=== PATIENT | female | born 1945 | race Caucasian/White ===

== ENCOUNTER 2019-06-24 00:44 | Observation (INO) | payer MEDICARE, OTHER, SELFPAY ==
[2019-06-24] VITALS (13 sets, daily range): BP systolic 120–165; BP diastolic 59–81; PULSE 68–77; RESP 16–18; TEMP 36.3–37.2; O2SAT 94–100; BMI 31.6
--- NOTE | 2019-06-24 00:49 | ED.GENADULT ---
HPI - General Adult General Chief complaint: Urogenital-Female Stated complaint: sent by ems for possible UTI Time Seen by Provider: 06/24/19 00:47 Source: patient Mode of arrival: Family Vehicle Limitations: no limitations History of Present Illness HPI narrative: 73-year-old female with a history of CVAs without any known residual deficits here for evaluation of weakness and a potential UTI. Patient states that over the past couple days she has noticed that it has become more difficult for her to get around her house. States at baseline she uses a walker at all times when she is outside of the house but while she is in the how she uses furniture to get around. She has noticed that it become more difficult to do this even with holding on to the furniture. EMS came out to her house within the past 48 hours. She declined transport. She does want evaluated because of the weakness. She stated that her was concerned that she had another stroke. Today EMS was again called out to the house secondary to weakness. She was evaluated by a nurse practitioner. Had a urinalysis done with concern for a urinary tract infection that was also concerned that her blood sugar was elevated. She arrived to the emergency department by private vehicle for evaluation of these conditions. Related Data Home Medications Medication Instructions Recorded Confirmed oxybutynin chloride [Ditropan XL] 10 mg PO QDAY #0 08/06/17 insulin aspart U-100 [Novolog u SQ SLIDE #0 08/08/17 Flexpen U-100 Insulin] insulin glargine [Lantus U-100 10 u SQ [facility] #0 08/08/17 Insulin] DEXTRAN 70/HYPROMELLOSE/PF (TEARS 1 drp OPHTH Q4HP PRN #0 08/31/17 NATURALE FREE DROPS) Lactobacillus acidophilus 50,000 units PO PRN PRN #0 08/31/17 [DOTERRA SUPPLEMENTS] 2 tab PO BID #0 08/31/17 [LEG CRAPMS OTC] TID #0 08/31/17 [RESTLESS LEG OTC] 3 tab PO Q4HP PRN #0 08/31/17 alum-mag hydroxide-simeth [Maglox] 30 ml PO Q4HP PRN #0 08/31/17 bisacodyl 10 mg PA PRN PRN #0 08/31/17 bisacodyl [Fleet Laxative] 5 mg PO PRN PRN #0 08/31/17 bisacodyl [Fleet Laxative] 10 mg PO PRN PRN #0 08/31/17 ferrous sulfate [Iron (ferrous 325 mg PO BID #0 08/31/17 sulfate)] gabapentin [Neurontin] 600 mg PO TID #0 08/31/17 insulin aspart U-100 [Novolog 5 unit SQ TIDAC #0 08/31/17 Flexpen U-100 Insulin] magnesium hydroxide [Milk Of 30 ml PO PRN PRN #0 08/31/17 Magnesia Concentrated] melatonin 6 mg PO HS #0 08/31/17 metoprolol tartrate 50 mg PO BID #0 08/31/17 omeprazole 40 mg QDAY #0 08/31/17 ondansetron 4 mg SUBLINGUAL Q4HP PRN #0 08/31/17 ondansetron HCl 4 mg PO Q2HP PRN #0 08/31/17 sodium phosphates [Fleet Enema] 1 ea PA PRN PRN #0 08/31/17 tramadol 50 mg PO Q4HP PRN #0 08/31/17 Previous Rx's Medication Instructions Recorded acetaminophen 650 mg PO Q4HPP PRN #90 tab 08/10/17 atorvastatin 40 mg PO HS #30 tab 08/13/17 metformin [Fortamet] 1,000 mg PO BID #60 tab 08/14/17 rivaroxaban [Xarelto] 20 mg PO QDAY #30 tab 08/14/17 tramadol 50 mg PO Q8HP PRN #30 tab 09/02/17 amoxicillin-pot clavulanate 875 mg PO BID 10 Days #0 tab 11/09/17 [Augmentin] Allergies Allergy/AdvReac Type Severity Reaction Status Date / Time Muscle Relaxers Allergy Unknown Uncoded 06/24/19 00:54 No Known Allergies Allergy Uncoded 01/10/18 11:53 Review of Systems Constitutional Constitutional: Reports fatigue, Denies fever(s) and Reports weakness Cardiovascular Cardiovascular: Denies chest pain and Denies dyspnea Respiratory Respiratory: Denies dyspnea Gastrointestinal Gastrointestinal: Denies abdominal pain, Denies change in bowel habits, Reports nausea and Denies vomiting Genitourinary Genitourinary: Reports dysuria, Denies urinary incontinence, Reports urinary hesitancy, Reports urinary urgency and Denies vaginal discharge Musculoskeletal Musculoskeletal: Denies myalgias, Denies arthralgias and Reports muscle weakness Integumentary/Breasts Skin/Breast: Denies lesions and Denies rash Neurologic Neurologic: Denies behavioral changes and Reports weakness Psychiatric Psychiatric: Denies behavioral changes Endocrine Endocrine: Reports fatigue Hematologic/Lymphatic Comments: [facility] Medical History (Updated 06/24/19 @ 03:22 by Felix Mariano DO) Anemia (Acute) Diabetes (Acute) Gastroesophageal reflux disease (Acute) Neuropathy (Acute) Stroke (Inactive) Social History marital status: lives independently: Yes Social History marital status: lives independently: Yes Exam Initial Vital Signs Initial Vital Signs: Vital Signs Temperature 98.9 F 06/24/19 00:49 Pulse Rate 68 06/24/19 00:49 Respiratory Rate 16 06/24/19 00:49 Blood Pressure 165/62 H 06/24/19 00:49 Pulse Oximetry 96 06/24/19 00:49 Const General: cooperative, comfortable and well developed Orientation: alert, awake, oriented x3, oriented to person and oriented to place HENPR Head: normal to inspection and normocephalic Resp Effort & Inspection: normal respiratory effort Auscultation: clear to auscultation bilaterally Cardio Rate: regular rate Rhythm: regular rhythm GI Inspection: non-distended Palpation: soft, No firm and No tender Rectal Exam: heme negative stool Back/Spine/Pelvis Back: No CVA tenderness Skin Lesions: no lesions Rashes: no rashes Neuro General: alert, awake and oriented x3 Cranial Nerves: CN's II-XI intact bilaterally Cognition: normal cognition Speech: speech normal Gait: other (Patient able to stand and transfer to commode requiring assistance) Sensory Exam: no sensory deficits noted Coordination: [id number] test normal Other: 5/5 bilateral upper extremities. 4/5 right lower extremity, 3/5 left lower extremity Extrem General: normal to inspection, capillary refill normal and No edema Psych Appearance: grossly normal and well kempt Scores GCS [place] coma scale eye opening: Spontaneous [place] coma scale verbal response: Orientated [place] coma scale motor response: Obey commands [place] coma scale total score: 15 Course Orders Ordered: ED Orders 06/24/19 00:53 EKG-12 Lead Stat 06/24/19 01:00 Basic Metabolic Panel Stat Complete Blood Count AUTO DIFF Stat Lactate (Lactic Acid) Stat Partial Thromboplastin Time Stat Procalcitonin Stat Prothrombin Time INR Stat Troponin I Stat 06/24/19 01:14 CT head/brain wo con Stat 06/24/19 02:20 Urinalysis and Microscopic Stat Urine Culture Stat Sodium Chloride (Normal Saline 0.9%) 1,000 mls @ 125 mls/hr IV CONT TIERNEY Last Admin: 06/24/19 01:50 Dose: 125 mls/hr Documented by: ALBINO Ceftriaxone Sodium/Dextrose (Rocephin) 1 gm in 50 mls @ 100 mls/hr IV NOW ONE Stop: 06/24/19 03:27 Last Admin: 06/24/19 03:16 Dose: 100 mls/hr Documented by: YU Discontinued Medications Tramadol HCl (Ultram) 100 mg PO NOW ONE Stop: 06/24/19 02:56 Last Admin: 06/24/19 03:16 Dose: 100 mg Documented by: YU Vital Signs Vital signs: Vital Signs - 8 hr 06/24/19 00:49 06/24/19 01:55 Temperature 98.9 F Pulse Rate 68 71 Respiratory Rate 16 18 Blood Pressure 165/62 H Blood Pressure [Left Arm] 143/59 H Pulse Oximetry 96 100 Medical Decision Making Lab Data Lab results reviewed: Yes I reviewed the patient's lab results. Result diagrams: 06/24/19 01:00 06/24/19 01:00 Labs: Lab Results 06/24/19 06/24/19 06/24/19 Range/Units 01:00 01:00 01:00 WBC 10.4 (4.5-11.0) X10^3/uL RBC 4.68 (4.0-5.2) X10^6/uL Hgb 7.8 L (12.0-16.0) g/dL Hct 26.6 L (36-46) % MCV 56.8 L (80-100) fL MCH 16.7 L (26-34) PG MCHC 29.4 L (30-36) % RDW 19.1 H (11.6-14.8) % Plt Count 483 H (150-400) X10^3/uL Neut % (Auto) 76.2 H (50-75) % Lymph % (Auto) 18.5 L (25-40) % [place] % (Auto) 4.4 (3-14) % Eos % (Auto) 0.5 L (2-4) % Baso % (Auto) 0.4 (0-2) % Neut # (Auto) 7900 H (5265-3324) /uL Lymph # (Auto) 1900 (4753-4853) /uL [place] # (Auto) 500 (0-900) /uL Eos # (Auto) 0 (0-450) /uL Baso # (Auto) 0 (0-100) /uL RBC Morphology See below Hypochromasia 2+ H Poikilocytosis 1+ H Anisocytosis 2+ H Microcytosis 2+ H PT 11.8 (10.1-12.7) SECONDS INR 1.0 (0.9-1.3) APTT 29 (26.4-36.2) SECONDS Sodium 129 L (137-145) mmol/L Potassium 4.2 (3.4-5.1) mmol/L Chloride 89 L (98-107) mmol/L Carbon Dioxide 26 (22-32) mmol/L BUN 14 (7-17) mg/dL Creatinine 0.70 (0.52-1.04) mg/dL Estimated GFR > 60.0 (>60) mL/min BUN/Creatinine Ratio 20.0 (6-22) Glucose 157 H (80-110) mg/dL Lactate (0.7-2.1) mmol/L Calcium 9.7 (8.4-10.2) mg/dL Troponin I < 0.012 (0.01-0.034) ng/mL Procalcitonin (<0.5) ng/mL Urine Color Urine Appearance Urine pH (4.5-8.0) Ur Specific [place] (1.000-1.035) Urine Protein (Negative) Urine Glucose (UA) (Negative) g/dL Urine Ketones (NEGATIVE) Urine Occult Blood (Negative) Urine Nitrate (Negative) Urine Bilirubin (NEGATIVE) Urine Urobilinogen (0.2) E.U./dL Ur Leukocyte Esterase (NEGATIVE) Urine RBC (0-5/HPF) Urine WBC (0-5/HPF) Ur Squamous Epith Cells (0-5/HPF) Urine Bacteria (None) Ur Culture Indicated? 06/24/19 06/24/19 06/24/19 Range/Units 01:00 01:00 02:20 WBC (4.5-11.0) X10^3/uL RBC (4.0-5.2) X10^6/uL Hgb (12.0-16.0) g/dL Hct (36-46) % MCV (80-100) fL MCH (26-34) PG MCHC (30-36) % RDW (11.6-14.8) % Plt Count (150-400) X10^3/uL Neut % (Auto) (50-75) % Lymph % (Auto) (25-40) % [place] % (Auto) (3-14) % Eos % (Auto) (2-4) % Baso % (Auto) (0-2) % Neut # (Auto) (5628-7531) /uL Lymph # (Auto) (0838-9971) /uL [place] # (Auto) (0-900) /uL Eos # (Auto) (0-450) /uL Baso # (Auto) (0-100) /uL RBC Morphology Hypochromasia Poikilocytosis Anisocytosis Microcytosis PT (10.1-12.7) SECONDS INR (0.9-1.3) APTT (26.4-36.2) SECONDS Sodium (137-145) mmol/L Potassium (3.4-5.1) mmol/L Chloride (98-107) mmol/L Carbon Dioxide (22-32) mmol/L BUN (7-17) mg/dL Creatinine (0.52-1.04) mg/dL Estimated GFR (>60) mL/min BUN/Creatinine Ratio (6-22) Glucose (80-110) mg/dL Lactate 2.1 (0.7-2.1) mmol/L Calcium (8.4-10.2) mg/dL Troponin I (0.01-0.034) ng/mL Procalcitonin < 0.05 (<0.5) ng/mL Urine Color Yellow Urine Appearance Cloudy Urine pH 6.0 (4.5-8.0) Ur Specific [place] 1.010 (1.000-1.035) Urine Protein 2+ H (Negative) Urine Glucose (UA) Negative (Negative) g/dL Urine Ketones Trace H (NEGATIVE) Urine Occult Blood Trace-lysed (Negative) Urine Nitrate Positive (Negative) Urine Bilirubin Negative (NEGATIVE) Urine Urobilinogen 0.2 (0.2) E.U./dL Ur Leukocyte Esterase 2+ H (NEGATIVE) Urine RBC None seen (0-5/HPF) Urine WBC 30-100/hpf H (0-5/HPF) Ur Squamous Epith Cells 0-1 /hpf (0-5/HPF) Urine Bacteria Many (>30) H (None) Ur Culture Indicated? Specimen cultured Imaging Data CT scan - head: Radiologist's impression: Preliminary read Mild nonspecific periventricular deep white matter disease. Old ischemic event left frontal lobe ECG Data Attestation: I personally reviewed and interpreted this ECG as follows: Prior ECG tracings: not available for review Interpretation: Atrial fibrillation Ventricular rate is 70 Normal QRS Normal QTC Normal axis Nonspecific ST T wave changes MDM Narrative Medical decision making narrative: Patient is alert and oriented however does have some problems recalling items. Unsure if this is new however patient states that this has been happening since her stroke. Her head CT shows no signs of acute pathology. She has a urinary tract infection based on the urinalysis and her symptoms. She was given Rocephin in the emergency department for this. Has a normal lactate and normal procalcitonin a normal white blood cell count. She is anemic today. She is Hemoccult negative. Her last hemoglobin and hematocrit was from over 1 year ago and this was unremarkable. Patient does have iron on her medicine list however I am unsure if she takes the iron. Patient states she is unsure she takes iron. This anemia is also complicated by her use of Xarelto. She is on Xarelto given her atrial fibrillation and her history of strokes. I do not feel that her symptoms today are related to a new CVA. She is able to lift her legs up off the bed with left being weaker than the right. Patient states this is not new. Patient is able to stand somewhat at bedside unassisted however required much assistance with transferring to the bedside commode in order to provide a urine sample. She was unable to take any steps in the room secondary to weakness. Patient agrees that this is not her baseline. She states that it is worse today than what it has been over the past several days. This could be secondary to her anemia or urinary tract infection or both. I feel the patient is unsafe to go home given her weakness and bili need to get around. I did discuss the case with TIO Camilo the night hospitalist. Will admit under observation. Discussed admission with the patient who expressed understanding and agreement. Discharge Plan Departure Patient Disposition: Admitted as Observation Clinical Impression: Weakness Anemia Qualifiers: Anemia type: unspecified type Qualified Code(s): D64.9 - Anemia, unspecified Urinary tract infection Qualifiers: Urinary tract infection type: acute cystitis Hematuria presence: without hematuria Qualified Code(s): N30.00 - Acute cystitis without hematuria Admit Date/Time: 06/24/19 03:18 Admit Provider: Luis E Camilo
--- NOTE | 2019-06-24 00:58 | PC.NURSE ---
pt sent from [facility], arrived with friend. [facility] states possible UTI. Pt reports being treated for uti. Pt addidtionally reports having difficulty moving legs. Pt was a heavy 1pa transfer from car to chair to stretcher. Pt unable to specifacally state what is wrong with her legs. Pt denies chest pain, nausea, vomiting, fever, chills.
--- NOTE | 2019-06-24 01:05 | PC.NURSE ---
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
--- NOTE | 2019-06-24 01:14 | DI.CT.S_ITS ---
PROCEDURE: CT HEAD/BRAIN WO CON INDICATIONS: Lower extremity weakness prior history of CVA TECHNIQUE: Noncontrast 4.5 mm thick angled axial sections acquired from the foramen magnum to the vertex, with coronal and sagittal reformats. For radiation dose reduction, the following was used: automated exposure control, adjustment of mA and/or kV according to patient size. COMPARISON: [facility], CT, HEAD WITHOUT CONTRAST, 08/31/2017, 10:27. FINDINGS: Image quality: Excellent. CSF spaces: Basal cisterns are patent. No extra-axial fluid collections. The ventricles are symmetric in size and shape. Brain: No intracranial bleeds or masses. There is cerebral volume loss for age, with resultant ventricular and sulcal prominence. There are periventricular and deep white matter chronic small vessel ischemic changes. Chronic left frontal infarct has occurred in the interval since the prior examination. Chronic mee lacunar infarct. There is intracranial internal carotid artery and vertebral artery atherosclerosis. Skull and face: Calvarium and visualized facial bones appear intact, without suspicious lesions. Sinuses: Visualized sinuses and mastoids are clear. IMPRESSION: No acute intracranial disease process. Dictated by: Charo Meyer MD, PhD on 06/24/2019 at 7:18 Approved by: Charo Meyer MD, PhD on 06/24/2019 at 7:20
[2019-06-24 01:17] LABS: Add Manual Diff / Slide Review NO; Basophils Absolute Auto 0 /uL (0-100); Basophils Percent Auto 0.4 % (0-2); Eosinophils Absolute Auto 0 /uL (0-450); Eosinophils Percent Auto 0.5 % (2-4); Hematocrit 26.6 % (36-46); Hemoglobin 7.8 g/dL (12.0-16.0); Lymphocytes Absolute Auto 1900 /uL (1100-4500); Lymphocytes Percent Auto 18.5 % (25-40); Mean Corpuscular HGB Conc 29.4 % (30-36); Mean Corpuscular Hemoglobin 16.7 PG (26-34); Mean Corpuscular Volume 56.8 fL (80-100); Monocytes Absolute Auto 500 /uL (0-900); Monocytes Percent Auto 4.4 % (3-14); Neutrophils Absolute Auto 7900 /uL (1500-7000); Neutrophils Percent Auto 76.2 % (50-75); Platelet Count 483 X10^3/uL (150-400); Red Blood Cell Count 4.68 X10^6/uL (4.0-5.2); Red Cell Distribution Width 19.1 % (11.6-14.8); White Blood Cell Count 10.4 X10^3/uL (4.5-11.0)
[2019-06-24 01:22] LABS: Prothrombin Time 11.8 SECONDS (10.1-12.7)
[2019-06-24 01:24] LABS: PTT Partial Thromboplastin Tim 29 SECONDS (26.4-36.2)
[2019-06-24 01:25] LABS: Lactate (Lactic Acid) 2.1 mmol/L (0.7-2.1)
[2019-06-24 01:28] LABS: Blood Urea Nitrogen 14 mg/dL (7-17); Calcium 9.7 mg/dL (8.4-10.2); Carbon Dioxide 26 mmol/L (22-32); Chloride 89 mmol/L (98-107); Estimated Glomerular Filt Rate > 60.0 mL/min (>60); Glucose 157 mg/dL (80-110); HEMOLYSIS < 15 (0-50); Potassium 4.2 mmol/L (3.4-5.1); Sodium 129 mmol/L (137-145)
[2019-06-24 01:36] LABS: Anisocytosis 2+; Microcytosis 2+
[2019-06-24 01:38] LABS: Poikilocytosis 1+
[2019-06-24 01:40] LABS: Troponin I < 0.012 ng/mL (0.01-0.034)
[2019-06-24 01:42] LABS: Hypochromasia 2+
[2019-06-24 01:44] LABS: Procalcitonin < 0.05 ng/mL (<0.5)
[2019-06-24] MEDS: SODIUM CHLORIDE 0.9% 1,000 ML 125 ML IV (01:50)
[2019-06-24 02:29] LABS: RBC Urine None Seen (0-5/HPF)
[2019-06-24 02:31] LABS: Appearance Urine UA CLOUDY; Bilirubin Urine UA NEGATIVE (NEGATIVE); Color Urine UA YELLOW; Glucose Urine UA NEGATIVE (Negative); Ketones Urine UA TRACE (NEGATIVE); Leukocyte Esterase Urine UA 2+ (NEGATIVE); Nitrite Urine UA POSITIVE (Negative); Occult Blood Urine UA TRACE-LYSED (Negative); Protein Urine UA 2+ (Negative); Urobilinogen Urine UA 0.2 E.U./dL (0.2)
[2019-06-24 02:39] LABS: Bacteria Urine Many (>30); Culture Indicated Urine Specimen Cultured; Squamous Epithelial Cell Urine 0-1 /HPF (0-5/HPF); WBC Urine 30-100/HPF (0-5/HPF)
[2019-06-24] MEDS: CEFTRIAXONE 1 GM/50 ML FROZ.PIGGY IV (03:16)
[2019-06-24] MEDS: TRAMADOL 50 MG TABLET 100 MG PO (03:16)
--- NOTE | 2019-06-24 03:23 | PC.NURSE ---
Pt tolerating water.
[2019-06-24] MEDS: ONDANSETRON 4 MG/2 ML INJ IV ×2 (03:28→09:29)
--- NOTE | 2019-06-24 03:46 | P.HP_ITS ---
History of Present Illness History of Present Illness Date Patient Seen: 06/24/19 Time Patient Seen: 03:45 Chief complaint: sent by ems for possible UTI Narrative: Ms. Rachana Hunter is a 73-year-old female patient with history significant for atrial fibrillation anticoagulated on Xarelto, hypertension, hyperlipidemia, insulin-dependent type 2 diabetes, history of 2 prior strokes, 1 in each hemisphere,, uterine cancer, neuropathy, fibromyalgia and osteoarthritis presents to the ER following being seen on [facility] and sent for evaluation related to increasing weakness, hyperglycemia and possible urinary tract infection. The patient has been feeling for poorly for the last week and EMS has been to the house related to her increasing weakness and she declined transport. Per medics were again called related to worsening weakness and her hips meds concern for her possibly having another stroke. The patient has been complaining of frequency and urgency of urination as well as nausea and vomiting. She describes her emesis has clear progressing to dry heaves. The patient denies complaints of fevers or chills or dizziness but does acknowledge longstanding balance issues since her strokes. She reports no difficulty chewing or swallowing. She does complain of chronic back pain with radiation into the right leg. She denies chest pain or palpitations. She denies shortness of breath but states she sleeps sitting up in a chair for comfort of her back but also to help her breathe. She denies abdominal pain has nausea vomiting as above. She reports frequent constipation. The patient is ambulatory at home using furniture and martel for support. When she goes outside her into the committed uses walker. She is otherwise independent in her ADLs. Upon arrival in the ER the patient had a temperature of 98.9?, heart rate of 68, blood pressure 165/62 and respirations 16 with oxygen saturation 96% on room air. While in the ER the patient underwent a CT scan which defied no acute intracranial pathology and had lab work revealing a white count of 10.4 anemia with a hemoglobin of 7.8 hematocrit 26.6 with platelets of 483. His notable that she has a MCV of 56, MCH of 16.7 and RDW at 19.1. All her coagulation studies are within normal parameters. She is hyponatremic with a sodium 129 with potassium of 4.2 her BUN is 14 and creatinine is 0.7 has a nonfasting glucose of 157. Procalcitonin is less than 0.05, troponin is less than 0.012 and she has lactic acid of 2.1. Urinalysis obtained which finds 2+ protein with trace ketones, trace blood with lysis, positive leukocyte esterase, WBCs and bacteria. A digital rectal exam is completed by the ER physician obtaining good stool sample which was Hemoccult negative. The patient is admitted to the hospital Patient History Medical History Anemia (Acute) Atrial fibrillation by electrocardiogram (Acute) Diabetes (Acute) Fibromyalgia (Acute) Gastroesophageal reflux disease (Acute) History of hysterectomy (Acute) Neuropathy (Acute) Osteoarthritis (Acute) Stroke (Inactive) Uterine cancer (Acute) Surgical History History of right-sided carotid endarterectomy (Acute) Social History marital status: lives independently: Yes Family & Social History Social History: lives independently Yes Safety & Behavioral: Feels Safe in Current Yes Environment Been Physically Hurt or No Threatened By a Person Comment: The patient lives in single family home she states there has a chair lift for her to get up stairs. She lives there with her to whom she has been for 17 years. She endorses a history of her father being an alcoholic but left the family when she was an infant and nose no further about his medical history. Her mother has and had history of diabetes, uterine cancer and osteoarthritis. She has 6 siblings 1 brother who had myocardial infarction 1 sister who had cancer another sister who had cancer and kidney failure. Smoking: Patient has never used tobacco products Alcohol: The patient denies consuming alcohol Substance use: The patient denies use of recreational pharmaceuticals herbal or cannabis products. Advanced directives: The patient does not have formal advanced directive but indicates that she wishes to be FULL CODE. She designates her daughter Jessica Kimball or her Joel to be surrogate decision makers. Meds Home Medications and Allergies Home Medications Medication Instructions Recorded Confirmed Type oxybutynin chloride [Ditropan XL] 10 mg PO QDAY #0 08/06/17 History insulin aspart U-100 [Novolog u SQ SLIDE #0 08/08/17 History Flexpen U-100 Insulin] insulin glargine [Lantus U-100 10 [place] [facility] [place]0 08/08/17 History Insulin] acetaminophen 650 mg PO Q4HPP PRN #90 tab 08/10/17 Rx atorvastatin 40 mg PO HS #30 tab 08/13/17 Rx metformin [Fortamet] 1,000 mg PO BID #60 tab 08/14/17 Rx rivaroxaban [Xarelto] 20 mg PO QDAY #30 tab 08/14/17 Rx DEXTRAN 70/HYPROMELLOSE/PF (TEARS 1 drp OPHTH Q4HP PRN #0 08/31/17 History NATURALE FREE DROPS) Lactobacillus acidophilus 50,000 units PO PRN PRN #0 08/31/17 History [DOTERRA SUPPLEMENTS] 2 tab PO BID #0 08/31/17 History [LEG CRAPMS OTC] TID #0 08/31/17 History [RESTLESS LEG OTC] 3 tab PO Q4HP PRN #0 08/31/17 History alum-mag hydroxide-simeth [Maglox] 30 ml PO Q4HP PRN #0 08/31/17 History bisacodyl 10 mg SD PRN PRN #0 08/31/17 History bisacodyl [Fleet Laxative] 5 mg PO PRN PRN #0 08/31/17 History bisacodyl [Fleet Laxative] 10 mg PO PRN PRN #0 08/31/17 History ferrous sulfate [Iron (ferrous 325 mg PO BID #0 08/31/17 History sulfate)] gabapentin [Neurontin] 600 mg PO TID #0 08/31/17 History insulin aspart U-100 [Novolog 5 unit SQ TIDAC #0 08/31/17 History Flexpen U-100 Insulin] magnesium hydroxide [Milk Of 30 ml PO PRN PRN #0 08/31/17 History Magnesia Concentrated] melatonin 6 mg PO HS #0 08/31/17 History metoprolol tartrate 50 mg PO BID #0 08/31/17 History omeprazole 40 mg QDAY #0 08/31/17 History ondansetron 4 mg SUBLINGUAL Q4HP PRN #0 08/31/17 History ondansetron HCl 4 mg PO Q2HP PRN #0 08/31/17 History sodium phosphates [Fleet Enema] 1 ea SD PRN PRN #0 08/31/17 History tramadol 50 mg PO Q4HP PRN #0 08/31/17 History tramadol 50 mg PO Q8HP PRN #30 tab 09/02/17 Rx amoxicillin-pot clavulanate 875 mg PO BID 10 Days #0 tab 11/09/17 Rx [Augmentin] Allergies Allergy/AdvReac Type Severity Reaction Status Date / Time Muscle Relaxers Allergy Unknown Uncoded 06/24/19 00:54 No Known Allergies Allergy Uncoded 01/10/18 11:53 Review of Systems Review of Systems ROS Unobtainable: All systems reviewed & are unremarkable except as noted in HPI and below Exam Vital Signs (past 8 hours): - 06/24/19 00:49 06/24/19 01:55 06/24/19 03:24 Temperature 98.9 F Pulse Rate 68 71 71 Respiratory Rate 16 18 16 Blood Pressure 165/62 H Blood Pressure [Left Arm] 143/59 H 142/64 H Pulse Oximetry 96 100 99 Oxygen Delivery Method Room Air Narrative Exam Narrative: GENERAL APPEARANCE: well developed, overweight female laying semi recumbent in bed in no acute distress. HEENT: Normocephalic, glasses in place, PERRLA, conjunctiva and sclera clear, EOMs intact without nystagmus, no rhinorrhea, mucous membranes are dry and pink without lesions or exudate. NECK/THYROID: neck supple, no JVD, right left carotid bruit, no thyromegaly, trachea midline. LYMPH NODES: no cervical or supraclavicular lymphadenopathy. SKIN: warm and dry, no suspicious lesions, no rashes, ulcerations or petechiae. HEART: Irregularly irregular rhythm, S1-S2, no murmur, no rubs or gallops, brisk capillary refill, trace bilateral lower extremity edema LUNGS: clear to auscultation bilaterally, no coarseness crackles or wheezing, no cough present CHEST: Symmetrical movement, no accessory muscle use ABDOMEN: Soft, round, no abdominal tenderness, no guarding or peritoneal signs, no organomegaly, active bowel tones. BACK: Normal curvature, nontender to palpation, no CVA tenderness on percussion EXTREMITIES: moves all extremities, knee pain with straight leg raise, strength is 4/5 and symmetrical, no deformities or joint effusions. NEUROLOGIC: AAO x4, no focal neurologic deficits, cranial nerves II-XII grossly intact, blunted sensation from the level of the malleolus distal, hearing grossly normal to speech. PSYCH: alert, mildly impaired cognition and recall, poor historian providing different information to different interviewers, stable behavior Objective Labs Result Diagrams: 06/24/19 01:00 06/24/19 01:00 Labs: Laboratory Results - last 24 hr 06/24/19 06/24/19 06/24/19 01:00 01:00 01:00 WBC 10.4 RBC 4.68 Hgb 7.8 L Hct 26.6 L MCV 56.8 L MCH 16.7 L MCHC 29.4 L RDW 19.1 H Plt Count 483 H Neut % (Auto) 76.2 H Lymph % (Auto) 18.5 L Benson % (Auto) 4.4 Eos % (Auto) 0.5 L Baso % (Auto) 0.4 Neut # (Auto) 7900 H Lymph # (Auto) 1900 Benson # (Auto) 500 Eos # (Auto) 0 Baso # (Auto) 0 RBC Morphology See below Hypochromasia 2+ H Poikilocytosis 1+ H Anisocytosis 2+ H Microcytosis 2+ H PT 11.8 INR 1.0 APTT 29 Sodium 129 L Potassium 4.2 Chloride 89 L Carbon Dioxide 26 BUN 14 Creatinine 0.70 Estimated GFR > 60.0 BUN/Creatinine Ratio 20.0 Glucose 157 H Lactate Calcium 9.7 Troponin I < 0.012 Procalcitonin Urine Color Urine Appearance Urine pH Ur Specific [place] Urine Protein Urine Glucose (UA) Urine Ketones Urine Occult Blood Urine Nitrate Urine Bilirubin Urine Urobilinogen Ur Leukocyte Esterase Urine RBC Urine WBC Ur Squamous Epith Cells Urine Bacteria Ur Culture Indicated? 06/24/19 06/24/19 06/24/19 01:00 01:00 02:20 WBC RBC Hgb Hct MCV MCH MCHC RDW Plt Count Neut % (Auto) Lymph % (Auto) Benson % (Auto) Eos % (Auto) Baso % (Auto) Neut # (Auto) Lymph # (Auto) Benson # (Auto) Eos # (Auto) Baso # (Auto) RBC Morphology Hypochromasia Poikilocytosis Anisocytosis Microcytosis PT INR APTT Sodium Potassium Chloride Carbon Dioxide BUN Creatinine Estimated GFR BUN/Creatinine Ratio Glucose Lactate 2.1 Calcium Troponin I Procalcitonin < 0.05 Urine Color Yellow Urine Appearance Cloudy Urine pH 6.0 Ur Specific [place] 1.010 Urine Protein 2+ H Urine Glucose (UA) Negative Urine Ketones Trace H Urine Occult Blood Trace-lysed Urine Nitrate Positive Urine Bilirubin Negative Urine Urobilinogen 0.2 Ur Leukocyte Esterase 2+ H Urine RBC None seen Urine WBC 30-100/hpf H Ur Squamous Epith Cells 0-1 /hpf Urine Bacteria Many (>30) H Ur Culture Indicated? Specimen cultured Assessment & Plan Assessment & Plan narrative: 1. Urinary tract infection, acute, present on admission, active -patient reports frequency urgency and burning. -UA finds 2+ protein, ketones, trace blood, leukocyte esterase WBCs and many bacteria. -patient started on ceftriaxone 1 g in the ER will continue ceftriaxone 1 g IV daily. -IV fluid normal saline at 75 cc per hour 2. Microcytic hypochromic anemia, acute on chronic, present on admission, active -history of anemia, baseline H&H is 17 and 35, today presents at 7.8 and 26.6. -stool guaiac is negative in the ER on good sample. -no evidence of a bleeding or source identification, may contribute be contributory to complaint of weakness but does not appear acute. -patient presently has urinary tract infection will hold oral iron. -will monitor blood count, transfuse if indicated. 3. Generalized weakness acute on chronic, present on admission, active -the patient typically can ambulate within the house using the furniture for support. She uses a walker when ambulating in the community. -patient with history of prior strokes affecting both hemispheres with no report of residual symptoms. -PT and OT to evaluate and treat 4. Diabetes type 2, insulin-dependent, present on admission, active -patient is on a home regimen of metformin 1000 mg twice daily, Lantus and aspart insulin. -patient is reported have blood sugars in the 200s when evaluated on [facility] are likely elevated related to her urinary tract infection noted above. -Accu-Cheks AC and HS, -ordered Lantus 11 units basal insulin daily and correctional insulin low range sliding scale. -will hold metformin. 5. Chronic atrial fibrillation, controlled rate, present on admission, active -patient atrial fibrillation on EKG a controlled rate in 70s. No complaints of shortness of breath, chest pain, headaches or dizziness. -continue metformin 50 mg twice daily for rate control. -continue Xarelto for anticoagulation. 6. 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 -status post right CEA with left bruit on auscultation will obtain bilateral carotid ultrasound. -PT and OT to evaluate treat 7. Long-term anticoagulation, present on admission, active. -patient with a drop from her baseline hemoglobin of 11 in November of 2017 to 7.8 today. -no reports of melena, hematochezia, hematemesis or untoward bleeding. -without evidence of abnormal bleeding will continue Xarelto 20 mg daily. Scores GCS Lisha coma scale eye opening: Spontaneous [place] coma scale verbal response: Orientated Lisha coma scale motor response: Obey commands Lisha coma scale total score: 15
--- NOTE | 2019-06-24 03:59 | PC.NURSE ---
NS to continue in acute care. Rocephin to continue in acute care
[2019-06-24 04:19] LABS: Hemoglobin A1C% w Est Avg Glu 8.9 % (4.0-6.0)
[2019-06-24] MEDS: SODIUM CHLORIDE 0.9% 1,000 ML 75 ML IV ×2 (04:21→14:54)
[2019-06-24] MEDS: TRAMADOL 50 MG TABLET PO ×3 (06:09→19:25)
[2019-06-24] MEDS: PANTOPRAZOLE 40 MG TABLET PO (06:53)
[2019-06-24] MEDS: INSULIN ASPART 100 UNIT/ML INSULN PEN SUBCUT ×4 (09:24→21:05)
[2019-06-24] MEDS: RIVAROXABAN 10 MG TABLET 20 MG PO (09:30)
[2019-06-24] MEDS: METOPROLOL IR 50 MG TABLET PO ×2 (09:32→21:04)
[2019-06-24] MEDS: GABAPENTIN 600 MG TABLET PO (09:32)
[2019-06-24] MEDS: DOCUSATE 100 MG CAPSULE PO ×2 (09:33→21:04)
--- NOTE | 2019-06-24 10:12 | PC.NURSE ---
AM NOTE - pt is alert, speech clear, slightly delayed and at time will repeat statements, states no pain, continues w/underlying nausea at times and reported after breakfast this am, given 4mg zofran iv this am, assisted to dangle position, gen weakness, able stand w/fww, pt is wobbly and leans back, took a few shuffle steps to bsc and voided yellow, cloudy urine, ret to bed w/alarm set.
--- NOTE | 2019-06-24 11:30 | PT.IIE ---
Surgical History (Last Reviewed 06/24/19 @ 03:58 by ASHA Willis) History of right-sided carotid endarterectomy (Acute) Medical History (Last Reviewed 06/24/19 @ 03:58 by ASHA Willis) Anemia (Acute) Atrial fibrillation by electrocardiogram (Acute) Diabetes (Acute) Fibromyalgia (Acute) Gastroesophageal reflux disease (Acute) History of hysterectomy (Acute) Neuropathy (Acute) Osteoarthritis (Acute) Stroke (Inactive) Uterine cancer (Acute) Physical Therapy Inpatient Evaluation/Re-Eval M1 PT/OT-IP Prior Functional Status Start: 06/24/19 08:00 Freq: NEEDED Status: Active Protocol: Document 06/24/19 12:10 CGR (Rec: 06/24/19 12:33 CGR [id number]) Medical Review Prior Functional Status Medical History Reviewed Yes Communication Pt is able to communicate effectively. Mobility and Gait Pt was MOD I using a SPC, 2ww or rollator for outside activities and used nothing within her apt. Activities of Daily Living and IADL's Pt was IND in all ADLs and IADLs with her assisting with IADLs as appropriate. Social History Household Members spouse Living Arrangements Apartment/Condo Number of Floors (Floors) Two Floors Number of Stairs To Enter/Railing? Pt has a flight of stairs but has a chair lift up to her apt . Home Environment Standard Height Toilet,Tub/ Shower Home Equipment Front Wheel Walker,Four Wheel Walker,Straight Cane,Manual Wheelchair,Shower Seat with Backrest,Hand Held Shower,Grab Bars Near Toilet,Grab Bars In Shower Employment Status Retired Additional Social History Comment Pt states her cut out a part of the tub side so that she can just walk in. M3 PT-IP Subjective Start: 06/24/19 08:00 Freq: NEEDED Status: Active Protocol: Document 06/24/19 11:30 RS (Rec: 06/24/19 13:05 RS [email or web address]) Subjective Physical Therapy Visit Type Type Initial Evaluation Visit Start Time 10:30 Visit Stop Time 11:30 Total Visit Minutes 60 Physical Therapy Visit Comments Patient Comments Pt reports feeling better than when she got here but doesn't think she'll be able to walk. Patient Goals go to the bathroom GELACIO. Therapy Pain Assessment Pain When Pain Assessed At Rest Pain Present Pain Present Denied Pain M4 PT-IP Mobility and Gait Start: 06/24/19 08:00 Freq: NEEDED Status: Active Protocol: Document 06/24/19 11:30 RS (Rec: 06/24/19 13:05 RS [email or web address]) PT-Bed Mobility Assessment Supine to Sit Supine to Sit Standby Assistance,Head of Bed Elevated,Bedrails Sit to Supine Sit to Supine Minimal Assistance,Bedrails Scooting Scooting to Edge of Bed Standby Assistance PT-Transfer Assessment Sit to and From Stand Sit to and from Stand Contact Guard Assistance,1 Person Assistance Equipment Transfer Assistive Device Gait Belt,Front Wheeled Walker Transfers Transfer Destination Bed,Chair,Bedside Commode Transfer Technique Stand Step Pivot Transfer Ability Level of Assist Contact Guard Assistance Comments Mobility Comments 2 people were present for transfers by default of co- eval, but pt would have been safely able to transfer with only 1 person assist. Gait Assessment Gait Gait Assistance Required: Contact Guard Assist Distance (Feet) 10 Assistive Devices Assistive Device Gait Belt,Front Wheeled Walker Gait Deviations General Gait Pattern Decreased Stride Length, Decreased Feet Clearance,Wide Based Gait Factors Limiting Gait Function Factors Limiting Gait Function Decreased Activity Tolerance, Decreased Strength,Poor Balance Comments Gait Comments Pt steady with FWW, no LOB, though with low foot clearance and slight forward flexion of trunk, definitely needed the BUE support on FWW. PT-Balance Assessment Sitting Balance and Reactions Static Sitting Balance Ability Normal Dynamic Sitting Balance Ability Good Standing Balance and Reactions Static Standing Balance Ability Good Dynamic Standing Balance Ability Fair Device Used FWW M5 PT-IP Objective Assessments Start: 06/24/19 08:00 Freq: NEEDED Status: Active Protocol: Document 06/24/19 11:30 RS (Rec: 06/24/19 13:05 RS [email or web address]) Orientation Orientation/Cognition Level of Alertness Alert Orientation Name,Age,Birthday,Month,Date, Year,Day of Week,Place, Situation Safety Awareness Understands Safety Issues Memory Description No Deficits Noted Gross Range of Motion Lower Extremity ROM Assessment Within Functional Limits Strength Lower Extremity Strength Assessment Bilaterally Impaired Comments Strength Comments BLE grossly 3/5 M7 PT-IP Assessment and Plan Start: 06/24/19 08:00 Freq: NEEDED Status: Active Protocol: Document 06/24/19 11:30 RS (Rec: 06/24/19 13:05 RS [email or web address]) PT Summary Assessment and Plan Potential Rehabilitation Potential Good Status of Condition at Evaluation Stable Summary Impairments Strength,Balance,Transfers, Gait,Activity Tolerance Assessment Summary Pt presents with BLE weakness and gross deconditioning, unclear on how much of this is new vs from old bilat CVAs. Pt currently is below reported functional baseline but does have potential for functional improvement. Pt will benefit from daily acute PT with the anticipation that pt will make enough progress to be able to safely discharge directly home from the acute setting. Pt will likely need HHPT, but she has all needed DME at home . Pt in agreement with this plan. Goals Transfer Goal Independent,Front Wheeled Walker,Four Wheeled Walker Gait Goal Independent,Front Wheel Walker ,Four Wheel Walker Gait Distance 50 Other Goals Pt sleeps in recliner at home, no bed mobility goals needed. Days to Meet Goals 3 Frequency of Treatment Frequency Of Treatment Once a Day Treatment Plan Physical Therapy Treatment Plan Transfer Training,Gait Training,Therapeutic Exercise, Balance Retraining,Discharge Planning,Neuromuscular Re-ed Other Recommendations and Next Treatment gait progression, sit<>stands, Focus BLE strength Recommendations To Nursing Amount of Assist Needed 1 Person Assist Discharge Recommendations PT Discharge Recommendations Home with Assistance,Home Health
--- NOTE | 2019-06-24 12:33 | OT.IP.EVAL ---
Past Medical History (Last Reviewed 06/24/19 @ 03:58 by ASHA Willis) Anemia (Acute) Atrial fibrillation by electrocardiogram (Acute) Diabetes (Acute) Fibromyalgia (Acute) Gastroesophageal reflux disease (Acute) History of hysterectomy (Acute) Neuropathy (Acute) Osteoarthritis (Acute) Stroke (Inactive) Uterine cancer (Acute) Surgical History (Last Reviewed 06/24/19 @ 03:58 by ASHA Willis) History of right-sided carotid endarterectomy (Acute) Occupational Therapy Inpatient Evaluation/Re-Eval M1 PT/OT-IP Prior Functional Status Start: 06/24/19 08:00 Freq: NEEDED Status: Active Protocol: Document 06/24/19 12:10 CGR (Rec: 06/24/19 12:33 CGR [id number]) Medical Review Prior Functional Status Medical History Reviewed Yes Communication Pt is able to communicate effectively. Mobility and Gait Pt was MOD I using a SPC, 2ww or rollator for outside activities and used nothing within her apt. Activities of Daily Living and IADL's Pt was IND in all ADLs and IADLs with her assisting with IADLs as appropriate. Social History Household Members spouse Living Arrangements Apartment/Condo Number of Floors (Floors) Two Floors Number of Stairs To Enter/Railing? Pt has a flight of stairs but has a chair lift up to her apt . Home Environment Standard Height Toilet,Tub/ Shower Home Equipment Front Wheel Walker,Four Wheel Walker,Straight Cane,Manual Wheelchair,Shower Seat with Backrest,Hand Held Shower,Grab Bars Near Toilet,Grab Bars In Shower Employment Status Retired Additional Social History Comment Pt states her cut out a part of the tub side so that she can just walk in. M2 OT-IP Current Condition Start: 06/24/19 12:10 Freq: Status: Active Protocol: Document 06/24/19 12:10 CGR (Rec: 06/24/19 12:33 CGR [id number]) Occupational Therapy Current Condition Current Condition Evaluation Date 06/24/19 Treatment Diagnosis weakness Diagnosis Onset Date 06/24/19 M3 OT- IP Subjective and Pain Start: 06/24/19 12:10 Freq: Status: Active Protocol: Document 06/24/19 12:10 CGR (Rec: 06/24/19 12:33 CGR [id number]) OT- Subjective Occupational Therapy Visit Type Type Initial Evaluation Visit Start Time 10:30 Visit Stop Time 11:20 Total Visit Minutes 50 OT Pain Assessment Pain When Pain Assessed At Rest Pain Present Pain Present Denied Pain M4 OT- IP ADL's Start: 06/24/19 12:10 Freq: Status: Active Protocol: Document 06/24/19 12:10 CGR (Rec: 06/24/19 12:33 CGR [id number]) OT [id number] Comments OT Self-Feeding Comments Not meal time. OT ADL-Grooming General Evaluation Grooming Ability Standby Assistance Areas Needing Assistance Retrieving/Set-up of Grooming Items,Combing/Brushing Hair, Face Washing Comments OT Grooming Comments seated at sink with extra time . OT ADL-Oral Care General Eval Oral Care Ability Standby Assistance Areas of Assistance Brushing Teeth Comments Oral Care Comments seated at sink with extra time OT ADL-Dressing Comments OT Dressing Comments Not performed OT ADL-Toileting General Evaluation Toileting Ability Moderate Assistance Areas Needing Assistance Manage Clothing,Perform Perineal Hygiene Devices Toileting Assistive Devices Commode Comments OT Toileting Comments Pt toileted using the BSC and urinated seated. She needed assist to manage clothing down and up and was able to perform front pericare with set up and balance assist. OT ADL-Bathing Comments OT Bathing Comments Not performed M5 OT- IP IADL's Start: 06/24/19 12:10 Freq: Status: Active Protocol: Document 06/24/19 12:10 CGR (Rec: 06/24/19 12:33 CGR [id number]) OT-Instrumental Activities of Daily Living Deficits IADL Deficits Identified Deficits Home Safety Awareness Awareness of Need for Assistance at Home Good Awareness Ability to Problem Solve Emergency Able to Problem Solve Situations Home Safety Comments Pt seems to have a good understanding of the need for assist and states that her is very helpful. M6 OT- IP Functional Cognition Start: 06/24/19 12:10 Freq: Status: Active Protocol: Document 06/24/19 12:10 CGR (Rec: 06/24/19 12:33 CGR [id number]) Cognitive Factors Limiting Selfcare Function Cognitive Ability Level of Alertness Alert Patient Orientation Name,Age,Birthday,Month,Date, Year,Day of Week,Place, Situation Attention Span Ability Capable of Focused Attention, Capable of Sustained Attention Ability to Follow Commands Able to Follow Multi-Step Commands Memory Description No Deficits Noted Safety Awareness No Deficits Noted Problem Solving Ability No deficits Noted Executive Function Ability No Deficits Noted Abstract Thinking Ability No Deficits Noted Cognitive Comments Cognitive Assessment Comments Pt is slow to respond and needs extra time for processing but overall seems to be WFL. OT- Vision and Hearing OT- Hearing Assessment OT- Hearing Assessment WFL OT- Vision Assessment Visual Acuity Glasses All The Time Visual Attentiveness WFL Occular Pursuits WFL Visual Convergence WFL M7 OT- IP Mobility and Balance Start: 06/24/19 12:10 Freq: Status: Active Protocol: Document 06/24/19 12:10 CGR (Rec: 06/24/19 12:33 CGR [id number]) OT- Bed Mobility Assessment Supine to Sit Supine to Sit Assist Standby Assistance,Head of Bed Elevated Sit to Supine Sit to Supine Assist Minimal Assistance,Head of Bed Elevated Scooting Scooting to Edge of Bed Standby Assistance OT-Transfer Assessment Sit to and From Stand Sit to and from Stand Contact Guard Assistance Transfers Transfer Ability Contact Guard Assistance Technique Transfer Destination Bed,Bedside Commode,Chair Transfer Technique Stand Step Pivot Devices Transfer Assistive Devices Gait Belt,Front Wheeled Walker Comments Mobility Comments Pt needed extra time for all mobility. OT- Balance Assessment Sitting Balance and Reactions Static Sitting Balance Ability Normal Dynamic Sitting Balance Ability Good M8 OT- IP Objective Assessments Start: 06/24/19 12:10 Freq: Status: Active Protocol: Document 06/24/19 12:10 CGR (Rec: 06/24/19 12:33 CGR [id number]) OT Gross Range of Motion Upper Extremity Range of Motion Assessment Within Functional Limits OT Strength Upper Extremity Strength Assessment Within Functional Limits Comments Strength Comments Grossly 4/5 OT- Coordination Assessment Upper Extremity Finger to Nose Test Within Functional Limits Finger Tapping Test Within Functional Limits OT-Muscle Tone Assessment Muscle Tone WNL Yes OT Sensation Assessment Edema Edema Absent M9 OT- IP Assessment and Plan Start: 06/24/19 12:10 Freq: Status: Active Protocol: Document 06/24/19 12:10 CGR (Rec: 06/24/19 12:33 CGR [id number]) OT Summary Assessment and Plan Potential Rehabilitation Potential Good Analytic Complexity at Evaluation Low Summary OT Impairments Balance,Functional Mobility, Grooming,Dressing,Toileting, Bathing,Toilet Transfers, Shower Transfers Progress Towards Goals Progressing Toward Goals Assessment Summary Pt is a low complexity evaluation presenting with generalized weakness. Pt will benefit from OT services to address declines and recommend d/c home with family support. Pt appears to have all necessary equipment at home and good support. Goals Grooming Goal Independent Dressing Goal Independent Toileting Goal Independent Bathing Goal Independent Toilet Transfer Goal Independent Shower Transfer Goal Independent Days to Meet Goals 3 Frequency of Treatment Frequency Of Treatment Once a Day Treatment Plan OT Treatment Plan ADL Training,Functional Mobility,Patient/Family Education,Discharge Planning Discharge Recommendations OT Discharge Recommendations Home with Assistance Home Equipment Needs No needs
--- NOTE | 2019-06-24 15:12 | P.PN_ITS ---
Subjective Subjective Date Patient Seen: 06/24/19 Time Patient Seen: 15:13 Interval history: I agree with the previous H&P is documented by ASHA Willis. Today the patient is feeling slightly improved but continues to have nausea requiring frequent dosing of Zofran. Despite the nausea she is eating quite well. Her CBC is currently pending to trend her anemia but she denies any active bleeding at this time. She reports she has not had a colonoscopy in a very long time, and does not recall screening for colon cancer being done in the past. Exam Vital Signs (past 8 hours): - 06/24/19 07:35 06/24/19 08:00 06/24/19 12:00 Temperature 97.4 F L 98.2 F Pulse Rate 76 72 Respiratory Rate 18 18 Blood Pressure 141/69 H 120/73 Pulse Oximetry 94 100 100 06/24/19 13:57 Temperature Pulse Rate Respiratory Rate Blood Pressure Pulse Oximetry 94 Oxygen Delivery Method Room Air Narrative Exam Narrative: GENERAL APPEARANCE: Well developed, well nourished, in no acute distress. SKIN: Inspection of the skin reveals no rashes, ulcerations or petechiae. HEENT: The sclerae were anicteric and conjunctivae were pink and moist. Extraocular movements were intact and pupils were equal, round with normal accommodation. External inspection of the ears and nose showed no scars, lesions, or masses. Lips, teeth, and gums showed normal mucosa. The oral mucosa, hard and soft palate, tongue and posterior pharynx were unremarkable. NECK: Supple and symmetric. There was no thyroid enlargement, and no tenderness, or masses were felt. CHEST: Normal AP diameter and normal contour without any kyphoscoliosis. LUNGS: Auscultation of the lungs revealed no wheezes, rhonchi, or rales. CARDIOVASCULAR: There was a regular rate and rhythm without any murmurs, gallops, rubs. Peripheral pulses were 2+ and symmetric. ABDOMEN: Soft and nontender with normal bowel sounds. No ascites was noted. MUSCULOSKELETAL: There was no tenderness or effusions noted. Muscle strength and tone were normal. EXTREMITIES: No cyanosis, clubbing or edema. NEUROLOGIC: Alert and oriented x 3. Normal affect. Strength is +5/5 in the Upper Extremities and Lower Extremities Bilaterally. Sensation to touch was normal. Objective Labs Result Diagrams: 06/24/19 01:00 06/24/19 01:00 Labs: Laboratory Results - last 24 hr 06/24/19 06/24/19 06/24/19 01:00 01:00 01:00 WBC 10.4 RBC 4.68 Hgb 7.8 L Hct 26.6 L MCV 56.8 L MCH 16.7 L MCHC 29.4 L RDW 19.1 H Plt Count 483 H Neut % (Auto) 76.2 H Lymph % (Auto) 18.5 L [place] % (Auto) 4.4 Eos % (Auto) 0.5 L Baso % (Auto) 0.4 Neut # (Auto) 7900 H Lymph # (Auto) 1900 [place] # (Auto) 500 Eos # (Auto) 0 Baso # (Auto) 0 RBC Morphology See below Hypochromasia 2+ H Poikilocytosis 1+ H Anisocytosis 2+ H Microcytosis 2+ H PT 11.8 INR 1.0 APTT 29 Sodium 129 L Potassium 4.2 Chloride 89 L Carbon Dioxide 26 BUN 14 Creatinine 0.70 Estimated GFR > 60.0 BUN/Creatinine Ratio 20.0 Glucose 157 H Hemoglobin A1c Lactate Calcium 9.7 Troponin I < 0.012 Procalcitonin Urine Color Urine Appearance Urine pH Ur Specific [place] Urine Protein Urine Glucose (UA) Urine Ketones Urine Occult Blood Urine Nitrate Urine Bilirubin Urine Urobilinogen Ur Leukocyte Esterase Urine RBC Urine WBC Ur Squamous Epith Cells Urine Bacteria Ur Culture Indicated? 06/24/19 06/24/19 06/24/19 01:00 01:00 01:00 WBC RBC Hgb Hct MCV MCH MCHC RDW Plt Count Neut % (Auto) Lymph % (Auto) [place] % (Auto) Eos % (Auto) Baso % (Auto) Neut # (Auto) Lymph # (Auto) [place] # (Auto) Eos # (Auto) Baso # (Auto) RBC Morphology Hypochromasia Poikilocytosis Anisocytosis Microcytosis PT INR APTT Sodium Potassium Chloride Carbon Dioxide BUN Creatinine Estimated GFR BUN/Creatinine Ratio Glucose Hemoglobin A1c 8.9 H Lactate 2.1 Calcium Troponin I Procalcitonin < 0.05 Urine Color Urine Appearance Urine pH Ur Specific [place] Urine Protein Urine Glucose (UA) Urine Ketones Urine Occult Blood Urine Nitrate Urine Bilirubin Urine Urobilinogen Ur Leukocyte Esterase Urine RBC Urine WBC Ur Squamous Epith Cells Urine Bacteria Ur Culture Indicated? 09/23/19 02:20 WBC RBC Hgb Hct MCV MCH MCHC RDW Plt Count Neut % (Auto) Lymph % (Auto) [place] % (Auto) Eos % (Auto) Baso % (Auto) Neut # (Auto) Lymph # (Auto) [place] # (Auto) Eos # (Auto) Baso # (Auto) RBC Morphology Hypochromasia Poikilocytosis Anisocytosis Microcytosis PT INR APTT Sodium Potassium Chloride Carbon Dioxide BUN Creatinine Estimated GFR BUN/Creatinine Ratio Glucose Hemoglobin A1c Lactate Calcium Troponin I Procalcitonin Urine Color Yellow Urine Appearance Cloudy Urine pH 6.0 Ur Specific [place] 1.010 Urine Protein 2+ H Urine Glucose (UA) Negative Urine Ketones Trace H Urine Occult Blood Trace-lysed Urine Nitrate Positive Urine Bilirubin Negative Urine Urobilinogen 0.2 Ur Leukocyte Esterase 2+ H Urine RBC None seen Urine WBC 30-100/hpf H Ur Squamous Epith Cells 0-1 /hpf Urine Bacteria Many (>30) H Ur Culture Indicated? Specimen cultured Assessment & Plan Assessment & Plan narrative: I agree with the previous assessment by ASHA Willis with some minor changes. Ms. Rachana Hunter is a 73-year-old female patient with history significant for atrial fibrillation anticoagulated on Xarelto, hypertension, hyperlipidemia, insulin-dependent type 2 diabetes, history of 2 prior strokes, 1 in each hemisphere,, uterine cancer, neuropathy, fibromyalgia and osteoarthritis presents to the ER following being seen on [facility] and sent for evaluation related to increasing weakness, hyperglycemia and possible urinary tract infection who was admitted as observation for weakness and a urinary tract infection. She is on appropriate antibiotic therapy at this time and her nausea has improved slightly but she is still requiring frequent doses of Zofran. 1. Urinary tract infection, acute, present on admission, active -patient reports frequency urgency and burning. -UA finds 2+ protein, ketones, trace blood, leukocyte esterase WBCs and many bacteria. -patient started on ceftriaxone 1 g in the ER will continue ceftriaxone 1 g IV daily. -IV fluid normal saline at 75 cc per hour 2. Microcytic hypochromic anemia, acute on chronic, present on admission, active -history of anemia, baseline H&H is 17 and 35, today presents at 7.8 and 26.6. -stool guaiac is negative in the ER on good sample. -no evidence of a bleeding or source identification, may contribute be contributory to complaint of weakness but does not appear acute. -will monitor blood count, transfuse if indicated. 3. Generalized weakness acute on chronic, present on admission, active -may be secondary to urinary tract infection or anemia. -the patient typically can ambulate within the house using the furniture for support. She uses a walker when ambulating in the community. -patient with history of prior strokes affecting both hemispheres with no report of residual symptoms. -PT and OT to evaluate and treat 4. Diabetes type 2, insulin-dependent, present on admission, active -patient is on a home regimen of metformin 1000 mg twice daily, Lantus and aspart insulin. -patient is reported have blood sugars in the 200s when evaluated on [facility] are likely elevated related to her urinary tract infection noted above. -Accu-Cheks AC and HS, -ordered Lantus 11 units basal insulin daily and correctional insulin low range sliding scale. -will hold metformin. 5. Chronic atrial fibrillation, controlled rate, present on admission, active -patient atrial fibrillation on EKG a controlled rate in 70s. No complaints of shortness of breath, chest pain, headaches or dizziness. -continue metformin 50 mg twice daily for rate control. -continue Xarelto for anticoagulation. 6. 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 -status post right CEA with left bruit on auscultation will obtain bilateral carotid ultrasound. -PT and OT to evaluate treat 7. Long-term anticoagulation, present on admission, active. -patient with a drop from her baseline hemoglobin of 11 in November of 2017 to 7.8 today. -no reports of melena, hematochezia, hematemesis or untoward bleeding. -without evidence of abnormal bleeding will continue Xarelto 20 mg daily.
[2019-06-24 15:21] LABS: HEMOLYSIS < 15 (0-50)
[2019-06-24 15:23] LABS: Blood Urea Nitrogen 16 mg/dL (7-17); Calcium 8.9 mg/dL (8.4-10.2); Carbon Dioxide 25 mmol/L (22-32); Chloride 95 mmol/L (98-107); Estimated Glomerular Filt Rate > 60.0 mL/min (>60); Glucose 268 mg/dL (80-110); HEMOLYSIS < 15 (0-50); Magnesium 1.2 mg/dL (1.6-2.3); Potassium 4.5 mmol/L (3.4-5.1); Sodium 129 mmol/L (137-145)
[2019-06-24 15:32] LABS: Total Iron Binding Capacity 407 ug/dL (265-497); Transferrin 324 mg/dL (206-381)
--- NOTE | 2019-06-24 15:48 | CM.DANOTE ---
Admitted OBS with UTI. Lives with spouse on [address] [place] [address]. Well set up for needs (walker, cane, home adjustmants). Biggest concern is the effort of moving to be near daughter next year. Denies needing any home assistance. Doesn't anticipate conflict with d/c home when medically cleared.
[2019-06-24 15:59] LABS: Add Manual Diff / Slide Review NO; Basophils Absolute Auto 0 /uL (0-100); Basophils Percent Auto 0.2 % (0-2); Eosinophils Absolute Auto 200 /uL (0-450); Eosinophils Percent Auto 2.1 % (2-4); Hematocrit 25.2 % (36-46); Hemoglobin 7.3 g/dL (12.0-16.0); Lymphocytes Absolute Auto 1500 /uL (1100-4500); Lymphocytes Percent Auto 13.9 % (25-40); Mean Corpuscular Hemoglobin 16.7 PG (26-34); Mean Corpuscular Volume 57.6 fL (80-100); Monocytes Absolute Auto 800 /uL (0-900); Monocytes Percent Auto 7.5 % (3-14); Neutrophils Absolute Auto 8000 /uL (1500-7000); Neutrophils Percent Auto 76.3 % (50-75); Platelet Count 428 X10^3/uL (150-400); Red Blood Cell Count 4.38 X10^6/uL (4.0-5.2); Red Cell Distribution Width 18.9 % (11.6-14.8); White Blood Cell Count 10.4 X10^3/uL (4.5-11.0)
[2019-06-24 16:35] LABS: Iron < 10 ug/dL (37-170); Percent Iron Saturation < 2 % (15-50)
[2019-06-24 16:44] LABS: Rouleaux 1+
[2019-06-24 16:45] LABS: Hypochromasia 2+
[2019-06-24 16:46] LABS: Anisocytosis 1+
[2019-06-24] MEDS: ATORVASTATIN 20 MG TABLET 40 MG PO (21:03)
[2019-06-24] MEDS: OXYBUTYNIN 5 MG ER TAB 15 MG PO (21:04)
[2019-06-24] MEDS: GABAPENTIN 600 MG TABLET 1200 MG PO (21:04)
[2019-06-24] MEDS: MELATONIN 3 MG TABLET 6 MG PO (21:04)
[2019-06-24] MEDS: INSULIN GLARGINE 100 UNIT/ML 3ML PEN 11 UNIT SUBCUT (21:05)
[2019-06-24] MEDS: cefTRIAXone 500 MG in DEXTROSE 5 % IN WATER 50 ML 100 ML IV (21:22)
[2019-06-25] VITALS: O2SAT 97
[2019-06-25] MEDS: ACETAMINOPHEN 325 MG TABLET 650 MG PO (00:16)
[2019-06-25 04:30] VITALS: BP 130/69; PULSE 62; RESP 19; TEMP 36.4; O2SAT 100
[2019-06-25] MEDS: SODIUM CHLORIDE 0.9% FLUSH 10 ML IV ×2 (04:39→09:35)
[2019-06-25] MEDS: TRAMADOL 50 MG TABLET 100 MG PO (04:39)
--- NOTE | 2019-06-25 04:49 | PC.NURSE ---
Pt. C/O bilateral LE pain rt. > than left. Pain level @ 7. Reported takes 100 mg. of Tramadol @ home, also requested to stop the IVF. C/O urinary frequency & not able to get a good night sleep. Notified ASHA Camilo orders received to SL. IV & increasamadol to 100 mg. 2 tabs. Ordered implemented & 100 mg. of Tramadol admin. Will cont. POC & monitor
[2019-06-25] MEDS: ONDANSETRON 4 MG ODT SL (04:57)
[2019-06-25] MEDS: PANTOPRAZOLE 20 MG TABLET PO (06:06)
[2019-06-25 08:00] VITALS: O2SAT 95
[2019-06-25 09:12] VITALS: BP 135/54; PULSE 64; RESP 16; TEMP 36.5; O2SAT 96
[2019-06-25] MEDS: INSULIN ASPART 100 UNIT/ML INSULN PEN SUBCUT ×2 (09:26→13:01)
[2019-06-25] MEDS: METOPROLOL IR 50 MG TABLET PO (09:32)
[2019-06-25] MEDS: CLOPIDOGREL 75 MG TABLET PO (09:32)
[2019-06-25] MEDS: OXYBUTYNIN 5 MG ER TAB 15 MG PO (09:32)
[2019-06-25] MEDS: GABAPENTIN 600 MG TABLET 1200 MG PO (09:32)
[2019-06-25] MEDS: DOCUSATE 100 MG CAPSULE PO (09:32)
[2019-06-25 12:00] VITALS: O2SAT 95
--- NOTE | 2019-06-25 12:47 | PT.IPTN ---
Physical Therapy Treatment Note M3 PT-IP Subjective Start: 06/24/19 08:00 Freq: NEEDED Status: Active Protocol: Document 06/25/19 12:46 CLB (Rec: 06/25/19 12:47 CLB [id number]) Subjective Physical Therapy Visit Type Type Patient Refusal Notes Pt refused PT twice today, once in AM and again this afternoon. Will check back on pt tomorrow.
--- NOTE | 2019-06-25 13:49 | PC.NURSE ---
Addendum entered by Karen Brown R.N. 06/25/19 14:57: DC - spouse returned, both pt and spouse calm, reviewed the dc instructions, scripts given to spouse, no home meds, belongings gathered, including cell phone, cupola charger insulation, own cane and fww, glasses, earrings, watch, clothing, sweater and jacket, pt already has a ferry reservation and document management specialist assisted to wc and escorted to car. Addendum entered by Karen Brown R.N. 06/25/19 14:29: DC - pt and spouse had argument and spouse stormed out room and went off floor, per pt he has an anger mgt problem and so do I, pt states he will return. Addendum entered by Karen Brown R.N. 06/25/19 14:17: DC - Dr. Cadet in, pt to dc home, spouse arrived and states he has reservation [place], hep lock dc'd, scripts given to spouse, pt dressed and gathering belongings, including cell phone and cupola charger insulation, glasses, clothing, cane. Original Note: AM NOTE - let pt sleep in later am, then up to chair for breakfast, states earlier tramadol provided adequate relief leg discomfort, PT in and pt dod not want to ambul, later OT in and pt did ambul into shower w/OT assisting.
--- NOTE | 2019-06-25 14:16 | OT.IP.TRT ---
Occupational Therapy Treatment Note M2 OT-IP Current Condition Start: 06/24/19 12:10 Freq: Status: Active Protocol: Document 06/24/19 12:10 CGR (Rec: 06/24/19 12:33 CGR [id number]) Occupational Therapy Current Condition Current Condition Evaluation Date 06/24/19 Treatment Diagnosis weakness Diagnosis Onset Date 06/24/19 M3 OT- IP Subjective and Pain Start: 06/24/19 12:10 Freq: Status: Active Protocol: Document 06/25/19 14:08 [facility] (Rec: 06/25/19 14:16 [facility] [id number]) OT- Subjective Occupational Therapy Visit Type Type Treatment Note Visit Start Time 12:53 Visit Stop Time 14:04 Total Visit Minutes 71 Occupational Therapy Visit Comments Patient Comments Pt wanting to shower after lunch. OT Pain Assessment Pain When Pain Assessed At Rest Pain Present Pain Present Denied Pain M4 OT- IP ADL's Start: 06/24/19 12:10 Freq: Status: Active Protocol: Document 06/25/19 14:08 [facility] (Rec: 06/25/19 14:16 [facility] [id number]) OT [id number] General Evaluation Self-Feeding Ability Independent OT ADL-Dressing General Eval Upper Body Dressing Ability Minimal Assistance Lower Body Dressing Ability Moderate Assistance Comments OT Dressing Comments PARK to help fasten bra. Educated to fasten in front and turn it around, pt not wanting to try but states does so at home. Pt wanting assist to ami clothing over her feet due to too tired and insists will be able to do at home. In addition, pt's able to assist pt at home. OT ADL-Toileting General Evaluation Toileting Ability Minimal Assistance Areas Needing Assistance Manage Clothing Devices Toileting Assistive Devices Commode Comments OT Toileting Comments Assist to pull down clothng over her hips. Pt able to do own pericare needs with increased time. OT ADL-Bathing Bathing Type Bathing Type Shower General Evaluation Bathing Ability Minimal Assistance Areas Needing Assistance Wash/Dry Back Devices Bathing Equipment Hand Held Shower Sprayer, Shower Chair without Arms,Grab Bars Comments OT Bathing Comments Pt needing increased time to do all showering needs. Mainly assist for balance while standing CGA while doing her own pericare needs. PARK to help wash and dry her back. Pt heavily relies on grab bars so able to reach her legs and standing to wash pericare needs. M5 OT- IP IADL's Start: 06/24/19 12:10 Freq: Status: Active Protocol: Document 06/24/19 12:10 CGR (Rec: 06/24/19 12:33 CGR [id number]) OT-Instrumental Activities of Daily Living Deficits IADL Deficits Identified Deficits Home Safety Awareness Awareness of Need for Assistance at Home Good Awareness Ability to Problem Solve Emergency Able to Problem Solve Situations Home Safety Comments Pt seems to have a good understanding of the need for assist and states that her is very helpful. M6 OT- IP Functional Cognition Start: 06/24/19 12:10 Freq: Status: Active Protocol: Document 06/25/19 14:08 [facility] (Rec: 06/25/19 14:16 [facility] [id number]) Cognitive Factors Limiting Selfcare Function Cognitive Ability Level of Alertness Alert Patient Orientation Name,Age,Birthday,Month,Date, Year,Day of Week,Place, Situation Attention Span Ability Capable of Focused Attention, Capable of Sustained Attention Ability to Follow Commands Able to Follow Multi-Step Commands Cognitive Comments Cognitive Assessment Comments Pt is slow to respond and needs extra time for processing but overall seems to be at her baseline level fro cognition. M7 OT- IP Mobility and Balance Start: 06/24/19 12:10 Freq: Status: Active Protocol: Document 06/25/19 14:08 [facility] (Rec: 06/25/19 14:16 [facility] [id number]) OT-Transfer Assessment Sit to and From Stand Sit to and from Stand Contact Guard Assistance Transfers Transfer Ability Contact Guard Assistance Technique Transfer Destination Bed,Bedside Commode,Chair, Shower Stall Devices Transfer Assistive Devices Gait Belt,Front Wheeled Walker Comments Mobility Comments Pt needed extra time for all mobility. OT- Balance Assessment Sitting Balance and Reactions Static Sitting Balance Ability Normal Dynamic Sitting Balance Ability Good Standing Balance and Reactions Static Standing Balance Ability Fair M8 OT- IP Objective Assessments Start: 06/24/19 12:10 Freq: Status: Active Protocol: Document 06/24/19 12:10 CGR (Rec: 06/24/19 12:33 CGR [id number]) OT Gross Range of Motion Upper Extremity Range of Motion Assessment Within Functional Limits OT Strength Upper Extremity Strength Assessment Within Functional Limits Comments Strength Comments Grossly 4/5 OT- Coordination Assessment Upper Extremity Finger to Nose Test Within Functional Limits Finger Tapping Test Within Functional Limits OT-Muscle Tone Assessment Muscle Tone WNL Yes OT Sensation Assessment Edema Edema Absent M9 OT- IP Assessment and Plan Start: 06/24/19 12:10 Freq: Status: Active Protocol: Document 06/25/19 14:08 [facility] (Rec: 06/25/19 14:16 [facility] [id number]) OT Summary Assessment and Plan Potential Rehabilitation Potential Good Analytic Complexity at Evaluation Low Summary Progress Towards Goals Progressing Toward Goals Assessment Summary Pt to be going home today and to assist for all needs as needed. Pt able to tolerate showering and dressing today and mainly just needing extra time to complete tasks. Goals Days to Meet Goals 1 Frequency of Treatment Frequency Of Treatment Once a Day Treatment Plan OT Treatment Plan Patient/Family Education, Discharge Planning Discharge Recommendations OT Discharge Recommendations Home with Assistance Home Equipment Needs No needs
--- NOTE | 2019-06-25 16:19 | P.DS_ITS ---
History of Present Illness History of Present Illness Date Patient Seen: 06/25/19 Time Patient Seen: 08:45 Chief complaint: sent by ems for possible UTI Narrative: As per ASHA Willis Ms. Rachana Hunter is a 73-year-old female patient with history significant for atrial fibrillation anticoagulated on Xarelto, hypertension, hyperlipidemia, insulin-dependent type 2 diabetes, history of 2 prior strokes, 1 in each hemisphere,, uterine cancer, neuropathy, fibromyalgia and osteoarthritis presents to the ER following being seen on [facility] and sent for evaluation related to increasing weakness, hyperglycemia and possible urinary tract infection. The patient has been feeling for poorly for the last week and EMS has been to the house related to her increasing weakness and she declined transport. Per medics were again called related to worsening weakness and her hips meds concern for her possibly having another stroke. The patient has been complaining of frequency and urgency of urination as well as nausea and vomit ing. She describes her emesis has clear progressing to dry heaves. The patient denies complaints of fevers or chills or dizziness but does acknowledge longstanding balance issues since her strokes. She reports no difficulty chewing or swallowing. She does complain of chronic back pain with radiation into the right leg. She denies chest pain or palpitations. She denies shortness of breath but states she sleeps sitting up in a chair for comfort of her back but also to help her breathe. She denies abdominal pain has nausea vomiting as above. She reports frequent constipation. The patient is ambulatory at home using furniture and martel for support. When she goes outside her into the committed uses walker. She is otherwise independent in her ADLs. Upon arrival in the ER the patient had a temperature of 98.9?, heart rate of 68, blood pressure 165/62 and respirations 16 with oxygen saturation 96% on room air. While in the ER the patient underwent a CT scan which defied no acute i ntracranial pathology and had lab work revealing a white count of 10.4 anemia with a hemoglobin of 7.8 hematocrit 26.6 with platelets of 483. His notable that she has a MCV of 56, MCH of 16.7 and RDW at 19.1. All her coagulation studies are within normal parameters. She is hyponatremic with a sodium 129 with potassium of 4.2 her BUN is 14 and creatinine is 0.7 has a nonfasting glucose of 157. Procalcitonin is less than 0.05, troponin is less than 0.012 and she has lactic acid of 2.1. Urinalysis obtained which finds 2+ protein with trace ketones, trace blood with lysis, positive leukocyte esterase, WBCs and bacteria. A digital rectal exam is completed by the ER physician obtaining good stool sample which was Hemoccult negative. The patient is admitted to the hospital Discharge Providers Provider Date of admission: 06/24/19 03:18 Discharge Date: 06/25/19 Primary care physician: Erik Wang MD Consults: 06/24/19 03:39 Consult to Dietitian, Adult Routine Comment: Reason For Exam: Iron deficency anemia, DMT2 06/24/19 03:40 Consult to Discharge Planning Routine Comment: Consult to Occupational Therapy Evaluate & Treat Comment: Weakness, hx of CVA x2, ataxia Physician Instructions: Evaluate and treat Consult to Physical Therapy Evaluate & Treat Comment: Weakness, hx of CVA x2, ataxia Physician Instructions: Evaluate and Treat Discharge provider: Luis E Cadet DO Summary Hospital Course Discharge Diagnosis: 1. Urinary tract infection, acute, present on admission, active 2. Microcytic hypochromic anemia, acute on chronic, present on admission, active - secondary to iron deficiency. 3. Generalized weakness acute on chronic, present on admission, active 4. Diabetes type 2, insulin-dependent, present on admission, active 5. Chronic atrial fibrillation, controlled rate, present on admission, active 6. History of multiple CVA, stable Hospital Course: Ms. Rachana Hunter is a 73-year-old female patient with hi story significant for hypertension, hyperlipidemia, insulin-dependent type 2 diabetes, history of 2 prior strokes, 1 in each hemisphere,, uterine cancer, neuropathy, fibromyalgia and osteoarthritis presents to the ER following being seen on [facility] and sent for evaluation related to increasing weakness, hyperglycemia and possible urinary tract infection who was admitted as observation for weakness and a urinary tract infection. Her fatigue improved during the course of her admission. Her anemia was stable around 7.5, her stool guaiac was negative. She was found to be iron deficient and was started on iron therapy. She will require additonal workup as an outpatient for this anemia including possible endoscopy or colonoscopy. I further recommended she stop her home clopidogrel until etiology can be determined. She was discharged on cefdinir for her UTI. And I have asked that she see her PCP as soon as possible for further workup of her iron deficiency anemia. 1. Urinary tract infection, acute, present on admission, active -patient reports frequency urgency and burning. -UA finds 2+ protein, ketones, trace blood, leukocyte esterase WBCs and many bacteria. Culture with GNB which is still pending. -patient started on ceftriaxone 1 g daily, she received 2 doses and was discharged on oral cefdinir. 2. Microcytic hypochromic anemia, acute on chronic, present on admission, active - secondary to iron deficiency. -stool guaiac is negative in the ER on good sample. -iron studies showed an iron deficiency. -no evidence of a bleeding or source identification, may contribute be contributory to complaint of weakness but does not appear acute. Hg was stable around 7.5. This can be evaluated as an outpatient. 3. Generalized weakness acute on chronic, present on admission, active -may be secondary to urinary tract infection, anemia. -the patient typically can ambulate within the house using the furniture for support. She uses a walker when ambulating in the community. -patient with history of prior strokes affecting both hemispheres with no report of residual symptoms. -PT and OT evaluated patient prior to discharge. 4. Diabetes type 2, insulin-dependent, present on admission, active -patient to continue home regimen upon discharge. - endorsed patient was skipping dosing of Lantus. Patient was advised to continue taking her medications daily. 5. Chronic atrial fibrillation, controlled rate, present on admission, active -patient atrial fibrillation on EKG a controlled rate in 70s. No complaints of shortness of breath, chest pain, headaches or dizziness. -continue metformin 50 mg twice daily for rate control. -recommended discontinuation of clopidogrel upon discharge given iron deficiency anemia until etiology can be found as outpatient, this was discussed with patient and regarding risks and benefits of this. 6. 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 -status post right CEA with left bruit on auscultation will obtain bilateral carotid ultrasound. -PT and OT to evaluate treat -asked patient to discontinue clopidogrel pending anemia workup as outpatient. Exam Vital Signs (past 8 hours): - 06/25/19 09:12 06/25/19 12:00 Temperature 97.7 F Pulse Rate 64 Respiratory Rate 16 Blood Pressure 135/54 L Pulse Oximetry 96 95 Oxygen Delivery Method Room Air Oxygen Flow Rate 0 Narrative Exam Narrative: GENERAL APPEARANCE: Well developed, well nourished, in no acute distress. SKIN: Inspection of the skin reveals no rashes, ulcerations or petechiae. HEENT: The sclerae were anicteric and conjunctivae were pink and moist. E xtraocular movements were intact and pupils were equal, round with normal accommodation. External inspection of the ears and nose showed no scars, lesions, or masses. Lips, teeth, and gums showed normal mucosa. The oral mucosa, hard and soft palate, tongue and posterior pharynx were unremarkable. NECK: Supple and symmetric. There was no thyroid enlargement, and no tenderness, or masses were felt. CHEST: Normal AP diameter and normal contour without any kyphoscoliosis. LUNGS: Auscultation of the lungs revealed no wheezes, rhonchi, or rales. CARDIOVASCULAR: There was a regular rate and rhythm without any murmurs, gallops, rubs. Peripheral pulses were 2+ and symmetric. ABDOMEN: Soft and nontender with normal bowel sounds. No ascites was noted. MUSCULOSKELETAL: There was no tenderness or effusions noted. Muscle strength and tone were normal. EXTREMITIES: No cyanosis, clubbing or edema. NEUROLOGIC: Alert and oriented x 3. Normal affect. Strength is +5/5 in the Upper Extremities and Lower Extremities Bilaterally. Sensation to touch was normal. Objective Labs Result Diagrams: 06/24/19 14:18 06/24/19 14:18 Labs: Laboratory Results - last 24 hr 06/24/19 06/24/19 14:18 14:18 RBC Morphology See below Hypochromasia 2+ H Anisocytosis 1+ H Rouleaux 1+ H Iron < 10 L TIBC 407 % Saturation < 2 L Transferrin 324 Discharge Plan Discharge Plan Patient Disposition: Home Discharge comment: You were admitted to the hospital for weakness, Nausea, an elevated glucose, as well as a urinary tract infection. You should increase your Lantus to 13 units nightly and follow up with your primary care doctor regarding other changes to your insulin regimen. You will be prescribed medicat ions for nausea, and you should follow up with her primary care doctor regarding this as well, for now you should eat small frequent meals as the seemed to help the most. You may need an evaluation for gastroparesis if this does not improve with antibiotic therapy for urinary tract infection. You have an iron deficiency anemia and I have prescribed oral iron for you to take. Please follow up very soon with her primary care physician for further workup of this anemia. You may need an endoscopy. I have recommended that you stop taking plavix given your anemia until this can be further evaluated. Discharge Med Rec/Prescriptions Prescriptions: New ferrous sulfate 220 mg (44 mg iron)/5 mL solution 220 mg PO DAILY 30 Days Qty: 473 RF: 0 cefdinir 300 mg capsule 300 mg PO BID 5 Days Qty: 10 RF: 0 Continued Lantus U-100 Insulin 100 UNIT/1 ML solution 11 u SQ AMCC Qty: 0 RF: 0 Novolog Flexpen U-100 Insulin 100 UNIT/1 ML insulin pen 3 - 4 unit SQ QPM Qty: 0 RF: 0 metoprolol tartrate 50 MG tablet 50 mg PO BID Qty: 0 RF: 0 metformin 500 mg tablet 500 mg PO BID RF: 0 oxybutynin chloride 15 mg tablet extended release 24hr 15 mg PO BID RF: 0 glipizide 10 mg tablet 10 mg PO BID RF: 0 gabapentin 300 mg capsule 1,200 mg PO BID RF: 0 omeprazole 20 mg capsule,delayed release(DR/EC) 20 mg PO BID RF: 0 atorvastatin 40 MG tablet 40 mg PO BEDTIME RF: 0 Discontinued clopidogrel 75 mg tablet 75 mg PO DAILY RF: 0 Follow up/Referrals: Erik Wang MD [Primary Care Provider] - Provider Discharge Instructions Diet: Diet as Tolerated Activity: As tolerated. Visit Report/Discharge Packet Instructions: DI for Urinary Tract Infection (UTI), DI for Hyperglycemia -- Adult Discharge Data Primary Care Provider: Erik Wang Attending Provider: Luis E Camilo Admit Date/Time: 06/24/19 03:18 Discharges patient from system. Discharge Date/Time: 06/25/19 15:00
== END 2019-06-25 15:00 | disposition home or self-care (01) ==
LOC: ED 03:17 → AC 03:19
PROVIDERS: Admitting Provider Nurse Practitioner Adult Health; Emergency Provider Emergency Medicine; Family Provider Family Medicine; PCP Family Medicine; Visit Provider Nurse Practitioner Adult Health
DX: N30.00 Acute cystitis without hematuria (principal); R53.1 Weakness; E11.9 Type 2 diabetes mellitus without complications; K21.9 Gastro-esophageal reflux disease without esophagitis; Z86.73 Personal history of transient ischemic attack (TIA), and cerebral infarction without residual deficits; G62.9 Polyneuropathy, unspecified; Z79.01 Long term (current) use of anticoagulants; I10 Essential (primary) hypertension; E78.5 Hyperlipidemia, unspecified; M79.7 Fibromyalgia; Z79.4 Long term (current) use of insulin; I48.2 Chronic atrial fibrillation; D50.9 Iron deficiency anemia, unspecified
CPT/HCPCS: 36415; 36591; 70450; 80048; 81001; 82962; 83036; 83540; 83550; 83605; 83735; 84145; 84484; 85025; 85610; 85730; 87077; 87086; 87186; 93005; 93010; 96361; 96365; 96367; 96372; 96375; 96376; 97116; 97162; 97165; 97530; 97535; 99283; 99285; G0378; J0696; J2405

== ENCOUNTER → 2019-10-02 12:34 | Outpatient (ROUT) | payer SELFPAY ==
[2019-06-24 03:54] VITALS: BMI 31.6
[2019-10-02 12:37] LABS: RBC Urine None Seen (0-5/HPF)
[2019-10-02 12:43] LABS: Appearance Urine UA CLOUDY; Bilirubin Urine UA NEGATIVE (NEGATIVE); Color Urine UA YELLOW; Glucose Urine UA NEGATIVE (Negative); Ketones Urine UA NEGATIVE (NEGATIVE); Leukocyte Esterase Urine UA 2+ (NEGATIVE); Nitrite Urine UA NEGATIVE (Negative); Occult Blood Urine UA TRACE-LYSED (Negative); Protein Urine UA 1+ (Negative); Specific Gravity Urine UA 1.015 (1.000-1.035); Urobilinogen Urine UA 0.2 E.U./dL (0.2)
[2019-10-02 12:48] LABS: pH Urine UA 7.5 (4.5-8.0)
[2019-10-02 12:55] LABS: Bacteria Urine Many (>30); Culture Indicated Urine Specimen Cultured; Squamous Epithelial Cell Urine 1-5 /HPF (0-5/HPF); WBC Urine 10-30/HPF (0-5/HPF)
== END ==
PROVIDERS: Family Provider Family Medicine; Visit Provider Nurse Practitioner
DX: R10.9 Unspecified abdominal pain (principal); M54.9 Dorsalgia, unspecified
CPT/HCPCS: 81001; 87077; 87086; 87186

== ENCOUNTER → 2019-10-25 09:56 | Outpatient (CLI) | payer MEDICARE, OTHER, SELFPAY ==
[2019-06-24 03:54] VITALS: BMI 31.6
--- NOTE | 2019-10-25 | DI.CT.S_ITS ---
PROCEDURE: CT HEAD/BRAIN WO CON INDICATIONS: Cerebral infarction, unspecified TECHNIQUE: Noncontrast 4.5 mm thick angled axial sections acquired from the foramen magnum to the vertex, with coronal and sagittal reformats. For radiation dose reduction, the following was used: automated exposure control, adjustment of mA and/or kV according to patient size. COMPARISON: [facility], MR, STROKE PROTOCOL, 08/10/2017, 11:41. [facility], MR, BRAIN WITHOU^ CONTRAST, 09/01/2017, 11:34. [facility], CT, HEAD WITHOUT CONTRAST, 08/31/2017, 10:27. [facility], CT, CT HEAD/BRAIN WO CON, 06/24/2019, 1:17. FINDINGS: Image quality: Excellent. CSF spaces: Basal cisterns are patent. No extra-axial fluid collections. The ventricles are symmetric in size and shape. Brain: No intracranial bleeds or masses. There is cerebral volume loss for age, with resultant ventricular and sulcal prominence. There are periventricular and deep white matter chronic small vessel ischemic changes. There is a remote infarction seen involving the superior aspect of the left frontal lobe and a smaller infarction seen involving the right frontoparietal region. There is intracranial internal carotid artery atherosclerosis. Skull and face: Calvarium and visualized facial bones appear intact, without suspicious lesions. Sinuses: Visualized sinuses and mastoids are clear. IMPRESSION: No acute intracranial process is seen. No acute intracranial hemorrhage is seen. Removal bilateral infarctions are seen. Note is made of age-appropriate brain parenchymal volume loss and chronic small vessel ischemic changes. If there is strong clinical suspicion for an acute stroke, please consider an MRI for further evaluation, as it is more sensitive (assuming that there is no contraindication to MRI). Dictated by: Medhat Little M.D. on 10/25/2019 at 9:30 Approved by: Medhat Little M.D. on 10/25/2019 at 9:32
== END ==
PROVIDERS: Family Provider Family Medicine; PCP Family Medicine; Visit Provider Internal Medicine
DX: I63.9 Cerebral infarction, unspecified (principal)
CPT/HCPCS: 70450